=== PATIENT | female | born 1950 | race Caucasian/White ===

== ENCOUNTER 2020-03-14 19:46 | Emergency (ER) | payer MEDICARE ==
[~2020-03-14] VITALS: Ht 154.9 cm; Wt 81.0 kg
[~2020-03-14 19:46] MED LIST: GLIP10TA10 PO; LISI10TA5 PO; METF-414 PO; SIMV-46 PO
[2020-03-14] MEDS ORDERED: IPRATROPIUM BROMIDE (0.02%) 0.5MG/2.5ML NEB HHN STA (20:21)
[2020-03-14] MEDS ORDERED: ALBUTEROL (0.083%) 2.5MG/3ML NEB HHN STA (20:21)
[2020-03-14] MEDS ORDERED: PREDNISONE 20MG TABLET PO STA (20:21)
[2020-03-15 00:35] VITALS: BP 118/53
== END 2020-03-15 00:38 | disposition home or self-care (01) ==
LOC: ER 19:46
DX: J45.901 Unspecified asthma with (acute) exacerbation (principal); I10 Essential (primary) hypertension; E11.9 Type 2 diabetes mellitus without complications; I25.2 Old myocardial infarction; I25.10 Atherosclerotic heart disease of native coronary artery without angina pectoris
CPT/HCPCS: 36415; 82962; 83880; 84484; 93005; 94640; 99284; J7512

== ENCOUNTER 2021-06-28 20:44 | Emergency (ER) | payer MEDICARE ==
[~2021-06-28] VITALS: Ht 154.9 cm; Wt 84.0 kg
[~2021-06-28 20:44] MED LIST changes: +LISI10TA26 PO; -LISI10TA5 PO
[2021-06-29] MEDS ORDERED: ACETAMINOPHEN 325MG TABLET PO ONE (00:45)
[2021-06-29 01:37] VITALS: BP 131/72
== END 2021-06-29 01:37 | disposition home or self-care (01) ==
LOC: ER 20:44
DX: S00.03XA Contusion of scalp, initial encounter (principal); S05.12XA Contusion of eyeball and orbital tissues, left eye, initial encounter; K04.7 Periapical abscess without sinus; W01.198A Fall on same level from slipping, tripping and stumbling with subsequent striking against other object, initial encounter; Y93.01 Activity, walking, marching and hiking; Y92.018 Other place in single-family (private) house as the place of occurrence of the external cause
CPT/HCPCS: 70486; 99284

== ENCOUNTER 2021-09-18 16:53 | Emergency (ER) | payer MEDICARE, MEDICAID ==
[~2021-09-18] VITALS: Ht 154.9 cm; Wt 85.0 kg
[2021-09-18 18:08] LABS: BASOPHILS % 0.6 % (0.0-2.0); EOSINOPHILS % 1.6 % (0.0-5.0); HEMATOCRIT. 36.5 % (36.0-48.0); HEMOGLOBIN. 11.7 g/dL (12.0-16.0); LYMPHOCYTES % 21.6 % (20.0-50.0); MEAN CORPUSCULAR HEMOGLOBIN 28.4 pg (28.0-32.0); MEAN CORPUSCULAR VOLUME 88.8 fL (81.0-99.0); MEAN PLATELET VOLUME 8.9 fl (7.4-10.4); MONOCYTES % 6.9 % (2.0-8.0); NEUTROPHILS % 69.3 % (40.0-76.0); PLATELET 220 x1000/uL (130-400); RED BLOOD CELL COUNT 4.11 mill/uL (4.2-5.4); RED CELL DISTRIBUTION WIDTH 15.3 % (11.6-14.6)
[2021-09-18 18:18] LABS: CHLORIDE 109 mEq/L (98-107)
[2021-09-18 19:45] VITALS: BP 138/68
== END 2021-09-18 19:48 | disposition home or self-care (01) ==
LOC: ER 16:53
DX: R42 Dizziness and giddiness (principal); R53.1 Weakness; J45.909 Unspecified asthma, uncomplicated; I25.10 Atherosclerotic heart disease of native coronary artery without angina pectoris; E78.00 Pure hypercholesterolemia, unspecified; I10 Essential (primary) hypertension; I25.2 Old myocardial infarction; Z90.710 Acquired absence of both cervix and uterus
CPT/HCPCS: 36415; 71045; 80053; 83880; 84484; 85025; 93005; 99285

== ENCOUNTER 2024-10-17 10:50 | Emergency (ER) | payer MEDICAID, MEDICARE, OTHER ==
[~2024-10-17] VITALS: Ht 154.9 cm; Wt 73.0 kg
[~2024-10-17 10:50] MED LIST changes: -GLIP10TA10 PO; +GLIP10TA17 PO
[2024-10-17 11:10] VITALS: O2SAT 99
[2024-10-17] MEDS ORDERED: IBUP-2028 MT (12:58)
[2024-10-17 13:08] VITALS: BP 123/60; PULSE 63; RESP 18; TEMP 36.8; O2SAT 99
== END 2024-10-17 13:08 | disposition home or self-care (01) ==
LOC: ER 10:50
DX: S09.90XA Unspecified injury of head, initial encounter (principal); E78.00 Pure hypercholesterolemia, unspecified; E11.9 Type 2 diabetes mellitus without complications; I25.2 Old myocardial infarction; I10 Essential (primary) hypertension; J45.909 Unspecified asthma, uncomplicated; Z88.5 Allergy status to narcotic agent; Z90.49 Acquired absence of other specified parts of digestive tract; Z88.6 Allergy status to analgesic agent; Z90.710 Acquired absence of both cervix and uterus; W01.0XXA Fall on same level from slipping, tripping and stumbling without subsequent striking against object, initial encounter; Y93.89 Activity, other specified; Y92.89 Other specified places as the place of occurrence of the external cause; Y99.8 Other external cause status
CPT/HCPCS: 73080; 99284